=== PATIENT | female | born 1980 | race Caucasian/White ===

== ENCOUNTER 2016-10-26 11:42 | Emergency (ER) | payer MEDICAID ==
[2016-10-26 11:47] VITALS: BP 132/74; PULSE 108; RESP 16; TEMP 98.8; O2SAT 97
--- NOTE | 2016-10-26 12:27 | EDPHY ---
H & P Stated Complaint: INFECTED WOUND UPPER L BUTTOCK Time Seen by Provider: 10/26/16 12:10 HPI/ROS: CHIEF COMPLAINT: Buttock pain HISTORY OF PRESENT ILLNESS: This is a generally healthy immunocompetent 36-year -old female who presents with concern about right buttock pain. Approximately 3 weeks ago she fell and abraded her right buttock. Initially she reports drainage from this site that she believes might have been purulent. Since that time she has had a painful nonhealing scabbed area with surrounding erythema. She reports that the erythema is actually decreasing in size but that she continues with pain, some skin warmth, and failure to heal. There has not been any drainage for quite some time. She has not had fever. She does have mild fatigue. She denies any leg weakness, leg numbness, or bowel or bladder problems. She is not diabetic. REVIEW OF SYSTEMS: A ten point review of systems was performed and is negative with the exception of the items mentioned in the HPI. Source: Patient Exam Limitations: No limitations - Personal History LMP (Females 10-55): 15-21 Days Ago Current Tetanus Diphtheria and Acellular Pertussis (TDAP): Yes Tetanus Vaccine Date: < 10 YEARS - Medical/Surgical History Hx Asthma: No Hx Chronic Respiratory Disease: No Hx Diabetes: No Hx Cardiac Disease: No Hx Renal Disease: No Hx Cirrhosis: No Hx Alcoholism: No Hx HIV/AIDS: No Hx Splenectomy or Spleen Trauma: No Other PMH: DENIES - Social History Smoking Status: Never smoked Additional Social History: She is not . She is currently unemployed. - Physical Exam Exam: General Appearance: Alert. Vital signs reviewed. Blood pressure 132/74, heart rate 108 at triage. Neck: No lymphadenopathy. Lungs: Clear to auscultation. Cardiovascular: Regular rate and rhythm; no murmur, rub, or gallop. She is not tachycardic at the time of my evaluation. Gastrointestinal: Abdomen is soft and nontender, no masses or organomegaly, bowel sounds normal. Skin: Warm and dry, no rashes on exposed skin, normal color. Back: Nontender to palpation over the thoracolumbar spine. No CVAT. Pulses: 2+ femoral pulses bilaterally. Lymph nodes: No femoral lymphadenopathy. Extremities: No lower extremity edema, no calf tenderness or swelling. Buttocks: 7 x 7 circular abraded area in the mid left buttock with scab in place. There is mild surrounding erythema and warmth. No purulence. No fluctuance. There is underlying firmness that is mildly tender. Neurological: Alert and oriented. Moving all four extremities easily and equally. 5/5 strength in both lower extremities with testing of all major motor groups. Sensation is intact to light touch over both lower extremities. Gait is normal. Psychiatric: Normal affect. Constitutional: Initial Vital Signs Temperature (C) 37.1 C 10/26/16 11:44 Heart Rate 108 H 10/26/16 11:44 Respiratory Rate 16 10/26/16 11:44 Blood Pressure 132/74 H 10/26/16 11:44 O2 Sat (%) 97 10/26/16 11:44 O2 Delivery Mode Room Air Allergies/Adverse Reactions: No Known Allergies Allergy (Unverified 10/26/16 11:48) Home Medications: Medication Instructions Recorded Control Pills 10/26/16 Cephalexin [Keflex] 500 mg PO TID #21 cap 10/26/16 Sulfamethox/Tmp 800/160 mg 1 tab PO BID #14 tab 10/26/16 [Bactrim Ds] Medical Decision Making ED Course/Re-evaluation: I do not think that there is anything to drain at this time. However I am concerned about the length of time she has had this nonhealing area and I am recommending follow up with [facility]. There is no fluctuance and nothing that could be drained in the emergency department. There is tenderness, firmness underlying the scabbed, and mild erythema surrounding the injury, and some warmth. She will call on Friday, day after tomorrow, and understands that she will not be able to get an immediate appointment. We discussed imaging and she would like to forego any imaging at this time. She has no neurologic deficits of the lower extremities on exam. She is requesting antibiotics which I feel is reasonable to begin antibiotics. She is being started on Keflex and Bactrim. We reviewed the danger signs that should prompt her to be seen immediately. Differential Diagnosis: I considered a differential diagnosis that includes but is not limited to pelvic or sacral fracture, cellulitis, abscess, hematoma. Departure - Departure Disposition: Home, Routine, Self-Care Clinical Impression: Cellulitis Qualifiers: Site of cellulitis: buttock Qualified Code(s): L03.317 - Cellulitis of buttock Condition: Good Instructions: Cellulitis (ED) Additional Instructions: Please call [facility] (Dr. Ana M Rick or any of the providers in the clinic ) on Friday to schedule an appointment. You will not be able to be seen immediately. Any of the providers there are fine. Take the antibiotics as prescribed. If you develop new redness, new warmth, drainage from the wound, fever, any new or concerning symptoms --you should be re-evaluated immediately. Referrals: Ana M Rick MD [Medical Doctor] - As per Instructions Prescriptions: Cephalexin [Keflex] 500 mg PO TID #21 cap Sulfamethox/Tmp 800/160 mg [Bactrim Ds] 1 tab PO BID #14 tab
== END 2016-10-26 12:39 | disposition home or self-care (01) ==
LOC: CED 11:42
DX: L03.317 Cellulitis of buttock (principal)

== ENCOUNTER → 2018-06-01 | Outpatient (CLI) | payer MEDICAID | LOC: CIMAGING 10:44 | PROVIDERS: ATTEND Family Medicine | DX: Z12.31 Encounter for screening mammogram for malignant neoplasm of breast (principal); Z80.3 Family history of malignant neoplasm of breast ==

== ENCOUNTER → 2018-06-23 | Outpatient (CLI) | payer MEDICAID | LOC: CIMAGING 12:52 | PROVIDERS: ATTEND Family Medicine | DX: R92.8 Other abnormal and inconclusive findings on diagnostic imaging of breast (principal) ==